=== PATIENT | female | born 1985 | race Caucasian/White ===

== ENCOUNTER 2016-08-09 17:58 | Emergency (ER) | payer BC ==
--- NOTE | 2016-08-09 18:06 | PDOC ---
History of Present Illness - General History Source: Patient Exam Limitations: No Limitations - History of Present Illness Initial Comments: 08/09/16 18:17 The patient is a 30 year old female, with a significant past medical history of anemia, who presents to the emergency department with cough and fever for about a week. She denies any sick contacts. She reports unable to sleep secondary to symptoms and her symptoms getting worse. She reports taking a previous antibiotic and having an adverse reaction (lip scabing). She denies chest pain and shortness of breath. She denies fever, chills, headache and dizziness. She denies nausea, vomit, diarrhea and constipation. Allergies: NKDA Past surgical history: denies Social history: denies EtOH, occasional tobacco, and denies drug use. <Genaro Malin - Last Filed: 08/09/16 18:16> - General History Source: Patient <Erlin Balbuena - Last Filed: 08/09/16 18:58> - General Chief Complaint: Cold Symptoms Stated Complaint: COUGH Time Seen by Provider: 08/09/16 18:03 Past History <Genaro Malin - Last Filed: 08/09/16 18:16> - Past Medical History Anemia: Yes Asthma: No Cancer: No Cardiac Disorders: No CVA: No COPD: No CHF: No Dementia: No Diabetes: No GI Disorders: Yes Disorders: Yes (FIBROIDS) HTN: No Hypercholesterolemia: No Liver Disease: No Seizures: No Thyroid Disease: No - Surgical History Abdominal Surgery: No Appendectomy: No Cardiac Surgery: No Cholecystectomy: No (GALLSTONES REMOVED) Lung Surgery: No Neurologic Surgery: No Orthopedic Surgery: No - Reproductive History Dysfunctional Uterine Bleeding: Yes - Psycho/Social/Smoking Cessation Hx Anxiety: No Suicidal Ideation: No Smoking Status: Yes Smoking History: Current every day smoker Number of Cigarettes Smoked Daily: 2 If you are a former smoker, when did you quit?: 05/06 Cigars Per Day: 1 'Breaking Loose' booklet given: 02/14/16 Hx Alcohol Use: No Drug/Substance Use Hx: No Substance Use Type: None Hx Substance Use Treatment: No <Erlin Balbuena - Last Filed: 08/09/16 18:58> - Past Medical History Allergies/Adverse Reactions: Allergies Allergy/AdvReac Type Severity Reaction Status Date / Time No Known Drug Allergies Allergy Verified 06/12/15 16:52 COCONUT Allergy Intermediate Swelling Uncoded 06/12/15 16:52 LACTOSE Allergy Uncoded 06/12/15 16:52 NKA Allergy Uncoded 09/05/14 11:31 Home Medications: Ambulatory Orders Azithromycin [Zithromax -] 250 mg PO UTDICT #6 tab 08/09/16 Cetirizine HCl [Zyrtec -] 10 mg PO DAILY #14 tablet 08/09/16 Guaifenesin Dm [Robitussin Dm] 10 ml GT Q8H #100 ud 08/09/16 Review of Systems - Review of Systems Constitutional: Yes: Fever. No: Chills, Malaise, Weakness HEENTM: No: Eye Pain, Ear Pain, Throat Swelling Respiratory: Yes: Cough. No: Shortness of Breath, Productive cough, Hemoptysis Cardiac (ROS): No: Chest Pain, Lightheadedness, Palpitations, Chest Tightness ABD/GI: No: Constipated, Diarrhea, Nausea, Vomiting : No: Dysuria, Discharge, Frequency, Flank Pain Musculoskeletal: Yes: Muscle Pain. No: Back Pain, Joint Pain, Neck Pain Neurological: No: Headache, Numbness, Tingling, Tremors, Weakness Psychiatric: No: Anxiety, Depression <Genaro Malin - Last Filed: 08/09/16 18:16> *Physical Exam - Physical Exam General Appearance: Yes: Appropriately Dressed, Obese. No: Apparent Distress HEENT: positive: EOMI, CORBIN, Normal ENT Inspection, Normal Voice, Symmetrical, TMs Normal, Pharynx Normal Neck: positive: Normal Thyroid, Supple. negative: Tender Respiratory/Chest: positive: Rhonchi (Bilateral), Wheezing (Bilateral) Cardiovascular: positive: Regular Rhythm, Regular Rate Gastrointestinal/Abdominal: positive: Normal Bowel Sounds, Flat, Soft. negative : Tender, Organomegaly Musculoskeletal: positive: Normal Inspection Extremity: positive: Normal Capillary Refill, Normal Inspection, Normal Range of Motion Integumentary: positive: Normal Color, Dry, Warm Neurologic: positive: cotton cleaner II-XII NML intact, Fully Oriented, Alert, Normal Mood/ Affect, Normal Response, Motor Strength 5/5 <Genaro Malin - Last Filed: 08/09/16 18:16> *DC/Admit/Observation/Transfer - Attestations Scribe Attestion: 08/09/16 18:07 Documentation prepared by Genaro Malin, acting as medical support specialist for Erlin Balbuena MD. <Genaro Malin - Last Filed: 08/09/16 18:16> - Discharge Dispostion Admit: No <Erlin Balbuena - Last Filed: 08/09/16 18:58> Diagnosis at time of Disposition: Bronchitis, Viral syndrome - Discharge Dispostion Disposition: HOME Condition at time of disposition: Good - Prescriptions Prescriptions: Guaifenesin Dm [Robitussin Dm] 10 ml GT Q8H #100 ud Azithromycin [Zithromax -] 250 mg PO UTDICT #6 tab Cetirizine HCl [Zyrtec -] 10 mg PO DAILY #14 tablet - Patient Instructions Printed Discharge Instructions: DI for Viral Upper Respiratory Infection -- Adult, DI for Acute Bronchitis
[2016-08-09 18:07] VITALS: BP 126/77; PULSE 90; TEMP 99.8; BMI 43.2
[2016-08-09] MEDS ORDERED: ALBUTEROL SO4 2.5/IPRATROPIUM 0.5 INH SOL 3 ML VIAL.NEB. NEB ONE ×2 (18:48→18:51)
== END 2016-08-09 19:05 | disposition home or self-care (01) ==
LOC: FER 17:58
PROC: 3E0F7GC Introduction of Other Therapeutic Substance into Respiratory Tract, Via Natural or Artificial Opening (ICD-10-PCS; principal; 2016-08-09)
DX: B34.9 Viral infection, unspecified (principal); J40 Bronchitis, not specified as acute or chronic; F17.210 Nicotine dependence, cigarettes, uncomplicated
CPT/HCPCS: 71020-TC; 87070; 87077; 87430; 99281-25

== ENCOUNTER 2017-06-09 22:24 | Emergency (ER) | payer SELFPAY ==
[2017-06-09 22:56] VITALS: BP 107/69; PULSE 92; TEMP 98.2; BMI 39.9
[2017-06-09 23:09] LABS: PH,URINE 5.5 (4.5-8); URINE APPEARANCE Clear; URINE BILIRUBIN Negative (NEGATIVE); URINE GLUCOSE (UA) Negative (NEGATIVE); URINE KETONE Negative (NEGATIVE); URINE LEUK ESTERASE Negative (NEGATIVE); URINE NITRITE Negative (NEGATIVE); URINE PROTEIN Negative (NEGATIVE); URINE UROBILINOGEN 0.2 (0.2-1.0)
[2017-06-09] MEDS ORDERED: KETOROLAC TROMETHAMINE 60 MG/2 ML VIAL IM ONE (23:30)
--- NOTE | 2017-06-09 23:35 | PDOC ---
History of Present Illness - General Chief Complaint: Pain Stated Complaint: ABD PAIN/VAG BLEEDING Time Seen by Provider: 06/09/17 22:30 History Source: Patient Exam Limitations: No Limitations - History of Present Illness Initial Comments: 06/09/17 23:32 This is a 31-year-old female who comes in complaining of vaginal spotting. Patient has a history significant for heavy vaginal bleeding times many months approximately 2 years ago. As a result of that she became very anemic and she had a essure procedure done that had the her fallopian tubes blocked as it was felt that the bleeding was from the fallopian tubes. In addition to that her uterine wall was scraped and then cauterized. Patient said she has had no menstrual flow or vaginal bleeding 2 years and then this evening all of a sudden she developed lower sharp to crampy abdominal pain and a short episode of heavy bleeding which now has tapered down to vaginal spotting. She denies any nausea, vomiting, diarrhea. She denies any fevers or chills. Patient said there is some radiation of the pain around to her back. PAST MEDICAL HISTORY: As per history of present illness PAST SURGICAL HISTORY: no significant history FAMILY HISTORY: no pertinant history SOCIAL HISTORY: Pt lives with family and is employed. MEDICATIONS: reviewed ALLERGIES: As per nursing notes Review of Systems General: No fevers or chills, no weakness, no weight loss HEENT: No change in vision. No sore throat,. No ear pain CardioVascular: No chest pain or shortness of breath Respiratory:No cough, or wheezing. Gastrointestinal: no nausea, vomitting, diarrhea or constipation, No rectal bleeding Genitourinary: No dysuria, hematuria, or frequency, vaginal spotting and lower abdominal cramping Musculoskeletal: No joint or muscle pain or swelling Neurologic: No headache, vertigo, dizziness or loss of consciousness Psychiatric: nor depression Skin: No rashes or easy bruising Endocrine: no increased thirst or abnormal weight change Allergic: no skin or latex allergy All other systems reviewed and normal Exam: General: Well-nourished well-developed individual, no acute distress HEENT: Throat: Normal, tonsils normal, no erythema or exudate Neck: Supple, no meningeal signs, no lymphadenopathy Eyes::Pupils equal reactive and round, extraocular motion intact Chest: Nontender to palpation Cardiac: S1-S2 normal, regular rate and rhythm, no murmurs rubs or gallops Respiratory: Lungs clear to auscultation bilateral Abdomen: Soft, nondistended, normal bowel sounds, mild to moderately tender across the lower abdomen diffusely with some bilateral flank tenderness there is no guarding or rebound and bowel sounds are normal Extremities: Warm, dry, no cyanosis, clubbing, or edema Skin: No rashes Neuro: Alert and oriented x3, nonfocal exam, grossly intact, normal gait Psych: Normal mood and affect 06/10/17 00:01 Ultrasound revealed no acute pathology. CAT scan was done and showed a questionable fallopian tube occlusion device in the uterus otherwise no acute pathology. Assessment and plan: This is a 31-year-old female who had a fallopian occlusion device is placed and it appears that one of them have come out. Patient was told to follow-up with her regular care doctor in the morning and take Tylenol or Motrin for the pain. Patient discharged home. Past History - Past Medical History Allergies/Adverse Reactions: Allergies Allergy/AdvReac Type Severity Reaction Status Date / Time No Known Drug Allergies Allergy Verified 06/12/15 16:52 COCONUT Allergy Intermediate Swelling Uncoded 06/12/15 16:52 LACTOSE Allergy Uncoded 06/12/15 16:52 NKA Allergy Uncoded 09/05/14 11:31 Home Medications: Ambulatory Orders NK [No Known Home Medication] 06/09/17 Anemia: Yes Asthma: No Cancer: No Cardiac Disorders: No CVA: No COPD: No CHF: No Dementia: No Diabetes: No GI Disorders: Yes Disorders: Yes (FIBROIDS) HTN: No Hypercholesterolemia: No Liver Disease: No Seizures: No Thyroid Disease: No - Surgical History Abdominal Surgery: No Appendectomy: No Cardiac Surgery: No Cholecystectomy: No (GALLSTONES REMOVED) Lung Surgery: No Neurologic Surgery: No Orthopedic Surgery: No - Reproductive History Is Patient Now?: No Dysfunctional Uterine Bleeding: Yes - Suicide/Smoking/Psychosocial Hx Smoking Status: Yes Smoking History: Current every day smoker Number of Cigarettes Smoked Daily: 2 If you are a former smoker, when did you quit?: 05/06 Cigars Per Day: 1 Information on smoking cessation initiated: Yes 'Breaking Loose' booklet given: 06/09/17 Hx Alcohol Use: No Drug/Substance Use Hx: No Substance Use Type: None Hx Substance Use Treatment: No *Physical Exam - Vital Signs Last Vital Signs Temp Pulse Resp BP Pulse Ox 98.2 F 92 H 16 107/69 99 06/09/17 22:52 06/09/17 22:52 06/09/17 22:52 06/09/17 22:52 06/09/17 22:52 ED Treatment Course - LABORATORY CBC & Chemistry Diagram: 06/10/17 01:30 06/10/17 01:30 - ADDITIONAL ORDERS Additional order review: Laboratory Results 06/09/17 22:30 Urine HCG, Qual Negative - RADIOLOGY Radiology Studies Ordered: Category Date Time Status PELVIS(OTHER) US [US] Stat Ultrasound 06/09/17 23:31 Ordered *DC/Admit/Observation/Transfer Diagnosis at time of Disposition: Pelvic pain - Discharge Dispostion Disposition: HOME Condition at time of disposition: Stable Admit: No - Referrals - Patient Instructions Additional Instructions: You can take Tylenol or Motrin as needed for pain. Call your OB in the morning and get an appointment to follow-up as soon as possible. Return to the emergency department immediately with ANY new, persistent or worsening symptoms. Continue any medications as previously prescribed by your physician. You should follow up with your primary doctor as soon as possible regarding today's emergency department visit. . Please make sure your doctor reviews the results of your emergency evaluation. Thank you for coming to the Emergency Department today for your care. It was a pleasure to see you today. Please note that your evaluation is INCOMPLETE until you follow-up with your doctor. - Post Discharge Activity
[2017-06-09 23:43] LABS: URINE BLOOD 1+ (NEGATIVE); URINE COLOR YELLOW
[2017-06-09] MEDS ORDERED: KETOROLAC TROMETHAMINE 60 MG/2 ML VIAL ONE (23:50)
[2017-06-10 00:10] LABS: URINE WBC 0-3 (0-5)
[2017-06-10] MEDS ORDERED: SODIUM CHLORIDE 1,000 ML IV ONE (01:24)
[2017-06-10 01:58] LABS: BASOPHIL 0.3 % (0-2.0); EOSINOPHIL 0.8 % (0-4.5); MCH 28.3 pg (25.7-33.7); MEAN CELL VOLUME 85.8 fl (80-96); MEAN PLT VOLUME 8.2 fl (7.5-11.1); NEUTROPHILS 66.5 % (42.8-82.8); PLATELET COUNT 262 K/MM3 (134-434); RDW 14.1 % (11.6-15.6); WHITE BLOOD COUNT 14.9 K/mm3 (4.0-10.0)
[2017-06-10 02:19] LABS: ALBUMIN 3.6 g/dl (3.4-5.0); ALK PHOS 111 U/L (45-117); ANION GAP 8 (8-16); BILIRUBIN,TOTAL 0.3 mg/dL (0.2-1.0); CALCIUM 8.7 mg/dL (8.5-10.1); CO2 28 mmol/L (21-32); CREATININE 0.7 mg/dL (0.55-1.02); GLUCOSE,RANDOM 97 mg/dL (74-106); SGOT/AST 14 U/L (15-37); SGPT/ALT 28 U/L (12-78); TOT PROT 7.1 g/dl (6.4-8.2)
== END 2017-06-10 02:50 | disposition home or self-care (01) ==
LOC: FER 22:24
PROC: 3E0233Z Introduction of Anti-inflammatory into Muscle, Percutaneous Approach (ICD-10-PCS; principal; 2017-06-09)
PROC: 3E0337Z Introduction of Electrolytic and Water Balance Substance into Peripheral Vein, Percutaneous Approach (ICD-10-PCS; 2017-06-09)
DX: R10.2 Pelvic and perineal pain (principal); D64.9 Anemia, unspecified; F17.210 Nicotine dependence, cigarettes, uncomplicated
CPT/HCPCS: 36415; 74176-TC; 76830-TC; 76856-TC; 80053; 81003; 81015; 84703; 85025; 99283-25

== ENCOUNTER 2019-06-07 19:35 | Emergency (ER) | payer SELFPAY ==
[2019-06-07 19:46] VITALS: BP 132/79; PULSE 81; TEMP 98.2; BMI 42.4
[2019-06-07 20:29] LABS: BASO % 0.4 % (0-2.0); EOS % 0.8 % (0-4.5); HEMOGLOBIN 13.1 GM/dl (10.7-15.3); LYMPH % 29.6 % (8-40); MCH 29.1 pg (25.7-33.7); MCHC 32.6 g/dl (32.0-36.0); MEAN CELL VOLUME 89.2 fl (80-96); MEAN PLT VOLUME 8.2 fl (7.5-11.1); MONO % 3.4 % (3.8-10.2); NEUT % 65.8 % (42.8-82.8); PLATELET COUNT 271 K/MM3 (134-434); RBC 4.49 M/mm3 (3.60-5.2); RDW 12.1 % (11.6-15.6); WHITE BLOOD COUNT 12.4 K/mm3 (4.0-10.8)
[2019-06-07 20:44] LABS: ALBUMIN 3.3 g/dl (3.4-5.0); BILIRUBIN,TOTAL 0.1 mg/dl (0.2-1); CALCIUM 8.2 mg/dl (8.5-10); CREATININE 0.6 mg/dl (0.55-1.3); POTASSIUM 3.9 mmol/L (3.5-5.1); TOT PROT 6.5 g/dl (6.4-8.2)
--- NOTE | 2019-06-08 00:30 | PDOC ---
Documentation entered by Piper Mcdonnell SCRIBE, acting as scribe for Elinor Mascorro MD. Elinor Mascorro MD: This documentation has been prepared by the ebenezereSathya Aiswarya, SCRIBE, under my direction and personally reviewed by me in its entirety. I confirm that the documentation accurately reflects all work, treatment, procedures, and medical decision making performed by me. History of Present Illness - General Chief Complaint: Vaginal Bleeding Stated Complaint: CHRONIC VAG BLEEDING Time Seen by Provider: 06/07/19 19:45 History Source: Patient Exam Limitations: No Limitations - History of Present Illness Initial Comments: 06/07/19 20:27 The patient is a 33 year old female, with a significant PMH of anemia and fibroids, who presents to the emergency department with lightheadedness that began today. Patient endorses associated symptoms of nausea, cramps and generalized weakness. The patient states she has been experiencing vaginal bleeding since February. Bleeding has been steady since then and has been passing clots but patients is concerned that symptoms may be secondary to being anemic. The patient denies chest pain, shortness of breath, and headache. Denies fever, chills, vomit, diarrhea and constipation.Denies dysuria, frequency , urgency and hematuria. Allergies: coconut Past surgical history: gallstone removed Social history: Smokes cigarettes ( 2 cigarettes a day) PCP: Hugo Conklin Patient currently does not have a cost consultant Past History - Past Medical History Allergies/Adverse Reactions: Allergies Allergy/AdvReac Type Severity Reaction Status Date / Time No Known Drug Allergies Allergy Verified 06/30/17 20:03 COCONUT Allergy Intermediate Swelling Uncoded 06/30/17 20:03 LACTOSE Allergy Uncoded 06/30/17 20:03 NKA Allergy Uncoded 06/30/17 20:03 Home Medications: Ambulatory Orders Ferrous Sulfate [Iron] 325 mg PO DAILY 06/07/19 Multivitamins [Tab-A-Vit -] 1 tab PO DAILY 06/07/19 Anemia: Yes Asthma: No Cancer: No Cardiac Disorders: No CVA: No COPD: No CHF: No Dementia: No Diabetes: No GI Disorders: Yes Disorders: Yes (FIBROIDS) HTN: No Hypercholesterolemia: No Liver Disease: No Seizures: No Thyroid Disease: No - Surgical History Abdominal Surgery: No Appendectomy: No Cardiac Surgery: No Cholecystectomy: No (GALLSTONES REMOVED) Lung Surgery: No Neurologic Surgery: No Orthopedic Surgery: No - Reproductive History Dysfunctional Uterine Bleeding: Yes - Psycho Social/Smoking Cessation Hx Smoking Status: Yes Smoking History: Current every day smoker Number of Cigarettes Smoked Daily: 2 If you are a former smoker, when did you quit?: 05/06 Cigars Per Day: 1 Information on smoking cessation initiated: Yes 'Breaking Loose' booklet given: 06/09/17 Hx Alcohol Use: No Drug/Substance Use Hx: No Substance Use Type: None Hx Substance Use Treatment: No Review of Systems - Review of Systems Able to Perform ROS?: Yes Comments:: 06/07/19 20:28 GENERAL/CONSTITUTIONAL: No fever or chills. No weakness. HEAD, EYES, EARS, NOSE AND THROAT: No change in vision. No ear pain or discharge. No sore throat. CARDIOVASCULAR: No chest pain or shortness of breath. RESPIRATORY: No cough, wheezing, or hemoptysis. GASTROINTESTINAL:+nausea. No vomiting, diarrhea or constipation. GENITOURINARY: No dysuria, frequency, or change in urination. MUSCULOSKELETAL: No joint or muscle swelling or pain. No neck or back pain. SKIN: No rash NEUROLOGIC:+lightheadedness. No headache, vertigo, loss of consciousness, or change in strength/sensation. ENDOCRINE: No increased thirst. No abnormal weight change. HEMATOLOGIC/LYMPHATIC: No anemia, easy bleeding, or history of blood clots. ALLERGIC/IMMUNOLOGIC: No hives or skin allergy. *Physical Exam - Vital Signs Last Vital Signs Temp Pulse Resp BP Pulse Ox 98.2 F 81 18 132/79 97 06/07/19 19:37 06/07/19 19:37 06/07/19 19:37 06/07/19 19:37 06/07/19 19:37 - Physical Exam Comments: 06/07/19 20:29 GENERAL: Awake, alert, and fully oriented, in no acute distress HEAD: No signs of trauma EYES: PERRLA, EOMI, sclera anicteric, conjunctiva clear ENT: Auricles normal inspection, hearing grossly normal, nares patent, oropharynx clear without exudates. Moist mucosa NECK: Normal ROM, supple, no lymphadenopathy, JVD, or masses LUNGS: Breath sounds equal, clear to auscultation bilaterally. No wheezes, and no crackles HEART: Regular rate and rhythm, normal S1 and S2, no murmurs, rubs or gallops ABDOMEN: +mild suprapubic tenderness. No guarding, no rebound. No masses EXTREMITIES: Normal range of motion, no edema. No clubbing or cyanosis. No cords, erythema, or tenderness NEUROLOGICAL: Cranial nerves II through XII grossly intact. Normal speech, normal gait SKIN: Warm, Dry, normal turgor, no rashes or lesions noted. ED Treatment Course - LABORATORY CBC & Chemistry Diagram: 06/07/19 20:15 06/07/19 20:16 ED Progress Note - Progress Note Progress Note: As noted above, this 33-year-old woman with a history of intermittent chronic vaginal bleeding and apparent iron deficiency anemia presents with few day history of lightheadedness/weakness. Although she describes vaginal bleeding occurring for the last 3 months, there has been no recent change in the severity of bleeding. She denies abdominal/pelvic/back pain. She currently does not have a cost consultant (has not had regular follow-up since her cost consultant a few years ago). Exam as noted above. IV access obtained and CBC/chemistry profile sent. Patient received a liter of normal saline IV. CBC reveals mildly elevated white blood cell count (12,400) but hemoglobin/ hematocrit is at baseline (13/40). Review of previous laboratory evaluation reveals the patient's white blood cell count is consistently mildly elevated. Chemistry profile is essentially normal except for slightly elevated random glucose Patient will be discharged with referral to for gynecological follow-up. She should call the office at the start of the next business day () to arrange appointment. She should also follow-up with her PMD, Dr. Conklin. Meanwhile, if she has worsening lightheadedness/weakness or experiences abdominal/pelvic pain, she should return to the ER Discharge - Discharge Information Problems reviewed: Yes Clinical Impression/Diagnosis: History of anemia, Vaginal bleeding Condition: Stable Disposition: HOME - Follow up/Referral Referrals: Julian Barfield MD [Staff Physician] - 3 days - Patient Discharge Instructions Patient Printed Discharge Instructions: Good Food Sources of Iron Additional Instructions: Drink plenty of fluids Continue eating iron rich foods/supplementation with iron as previously Return to ER if you have severe lightheadedness/shortness of breath or develop chest pain Call Dr. Barfield's office on June 10 to arrange follow-up within 1 to 2 days Return to ER if you develop abdominal/pelvic pain or bleeding becomes severe - Post Discharge Activity
== END 2019-06-07 21:31 | disposition home or self-care (01) ==
LOC: FER 19:35
DX: N93.9 Abnormal uterine and vaginal bleeding, unspecified (principal); D64.9 Anemia, unspecified; D21.9 Benign neoplasm of connective and other soft tissue, unspecified; Z91.011 Allergy to milk products; Z91.018 Allergy to other foods; F17.210 Nicotine dependence, cigarettes, uncomplicated
CPT/HCPCS: 36415; 80053; 85025; 99282-25

== ENCOUNTER → 2019-08-07 | Day surgery (SDC) | payer OTHER ==
[2019-08-06 14:44] VITALS: BMI 42.0
[~2019-08-07] MED LIST: LACTATED RINGERS SOLUTION 1,000 ML IV SCH; MIDAZOLAM HCL 2 MG/2 ML SINGLE DOSE VIAL ONE; ONDANSETRON 4 MG/2 ML VIAL IVPUSH PRN; PROMETHAZINE HCL 25 MG/1 ML VIAL IVPUSH PRN; PROPOFOL 20 ML ONE; SUCCINYLCHOLINE CHLORIDE 200 MG/10 ML SYRINGE ONE; oxyCODONE HCL 5 MG TABLET ONE; oxyCODONE HCL 5 MG TABLET PO PRN
--- NOTE | 2019-08-07 13:59 | OP ---
Operative Note - Note: Operative Date: 08/07/19 Pre-Operative Diagnosis: Menorrhagia; failed ablation. Pelvic pain. Enlarged uterus. Retained one arm of Essure device. Operation: Hysteroscopy. D and C. Polypectomy. Removal of Essure. Findings: Enlarged uterus. Irregular, 8-10 weeks size. Sound 10 cm. Very irregular, polypoid endometrium. Post ablation changes ? Polyp. Essure device on the right side incompletely inserted, "hanging out". Endocervix WNL. Implants: seen Post-Operative Diagnosis: Same as Pre-op Surgeon: Julian Barfield Anesthesia: General Specimens Removed: EMC. Polyp. Unraveled Essure. Estimated Blood Loss (mls): 10
[2019-08-07 15:18] VITALS: PULSE 72
[2019-08-07 15:19] VITALS: TEMP 98.2
[2019-08-07 16:37] VITALS: BP 122/76
--- NOTE | 2019-08-09 09:30 | PATH ---
Surgical Pathology Report Patient Name: LUCIANO SANTIAGO [facility]. Rec. #: [id number] /Age/Gender: 1985 (Age: 33) / F Account: [id number] Location: [facility] SURGICAL Taken: 08/07/2019 Received: 08/08/2019 Reported: 08/09/2019 Physicians: Julian Barfield MD Specimen(s) Received A: ENDOMETRIAL CURETTINGS B: ENDOMETRIAL POLYP C: ESSURE DEVICE Clinical History Abnormal uterine and vaginal bleeding, pelvic pain Final Diagnosis A. ENDOMETRIUM, CURETTING: BENIGN ENDOMETRIUM WITH STROMAL DECIDUALIZATION AND EPITHELIAL ATROPHY SUGGESTIVE OF PROGESTIN EFFECT. BENIGN SQUAMOUS EPITHELIUM PRESENT. B. ENDOMETRIUM, POLYPECTOMY: BENIGN ENDOMETRIUM WITH STROMAL DECIDUALIZATION AND EPITHELIAL ATROPHY SUGGESTIVE OF PROGESTIN EFFECT. BENIGN SQUAMOUS EPITHELIUM PRESENT. C. LISW, REMOVAL: LISW CONSISTENT WITH ESSURE DEVICE (GROSS ONLY). Electronically Signed Julio Ohara M.D. Gross Description A. Received in formalin labeled "endometrial curettings," is a 2.4 x 2.0 x 0.2 cm aggregate of monzon-brown soft tissue fragments. The formalin is filtered and the specimen is entirely submitted in one cassette. B. Received in formalin labeled "endometrial polyp," is a 1.8 x 1.2 x 0.3 cm aggregate of monzon-brown soft tissue fragments. The formalin is filtered and the specimen is entirely submitted in one cassette. C. Received fresh labeled "Essure device," is an 11.5 cm in length alegria metallic wire foreign body, consistent with an Essure. No soft tissue is present. No sections are submitted, gross only. /08/08/2019 [facility]/08/08/2019
--- NOTE | 2019-09-19 11:39 | OP ---
DATE OF OPERATION: DATE OF DICTATION: 09/19/2019 PREOPERATIVE DIAGNOSES: 1. Menorrhagia; failed ablation. 2. Pelvic pain. 3. Enlarged uterus. 4. Retained 1 arm of Essure device. SURGEON: Chemo Barfield MD ANESTHESIA: General. OPERATION: 1. Hysteroscopy. 2. Dilatation and curettage. 3. Polypectomy. 4. Removal of retained arm of Essure. PROCEDURE AND FINDINGS: Under general anesthesia, in dorsal lithotomy position, patient was examined. Routine prep and drape were carried out. Cervix was grasped with tenaculum and gently dilated. Hysteroscope was inserted. Essure device was noted on the right side barely hanging on the tissue. Most of it was in the uterine cavity. Endometrium was very irregular and polypoid. Some post-ablation changes and large polyp were seen. The sound was 10 cm. Uterus was enlarged, measuring about 8-10 weeks' size. Endocervix was within normal limits. With minimal extra dilatation, Essure was removed with the polyp forceps and sent for identification. Polyp was also removed using the same device. Sharp curettage was carried out, and small amount of tissue was sent for Pathology. Post D&C hysteroscopy showed essentially normal cavity without Essure and without any significant polyps. Procedure was completed at that point. Total blood loss was less than 10 mL. Patient was awakened and transferred to the PACU, comfortable and stable. CHEMO BARFIELD MD [id number]
== END | disposition home or self-care (01) ==
LOC: JASU-SURG 10:57
PROVIDERS: ATTEND Specialist
PROC: 0UJD8ZZ Inspection of Uterus and Cervix, Via Natural or Artificial Opening Endoscopic (ICD-10-PCS; 2019-08-07)
PROC: 0UC98ZZ Extirpation of Matter from Uterus, Via Natural or Artificial Opening Endoscopic (ICD-10-PCS; 2019-08-07)
PROC: 0UB97ZX Excision of Uterus, Via Natural or Artificial Opening, Diagnostic (ICD-10-PCS; principal; 2019-08-07 13:28)
PROC: 0UDB7ZX Extraction of Endometrium, Via Natural or Artificial Opening, Diagnostic (ICD-10-PCS; 2019-08-07 13:28)
DX: T83.89XA Other specified complication of genitourinary prosthetic devices, implants and grafts, initial encounter (principal); N84.0 Polyp of corpus uteri
CPT/HCPCS: 84703; 88300-TC; 88305-TC; 94760